=== PATIENT | male | born 1985 | race Hispanic/Latino ===

== ENCOUNTER 2017-01-19 15:46 | Emergency (ER) | payer MEDICAID ==
[2017-01-19 15:47] VITALS: BMI 21.1
[2017-01-19 16:15] VITALS: BP 131/86; PULSE 82; RESP 18; TEMP 98.6; O2SAT 99
[2017-01-19] MEDS ORDERED: Lidocaine 1% Inj (20ml) IJ ONE (17:17)
--- NOTE | 2017-01-19 17:36 | ED PDOC ---
HPI: General Adult Time Seen by Provider: 01/19/17 16:33 Chief Complaint (Nursing): Abnormal Skin Integrity History Per: Patient Additional Complaint(s): Pt. states 4 days ago he injected himself with heroin in the R forearm and the following day he developed a progressively worsening bump at the site of injection. Since then he's attempted to drain the area with little success. Denies FB sensation, fever, numbness, tingling. Past Medical History Reviewed: Historical Data, Nursing Documentation, Vital Signs Vital Signs: Last Vital Signs Temp 98.6 F 01/19/17 16:10 Pulse 82 01/19/17 16:10 Resp 18 01/19/17 16:10 BP 131/86 01/19/17 16:10 Pulse Ox 99 01/19/17 17:40 - Medical History PMH: Asthma, Depression Denies: Diabetes, Hepatitis, HIV, HTN, Chronic Kidney Disease, Seizures, Sexually Transmitted Disease - Family History Family History: States: No Known Family Hx - Home Medications Home Medications: Ambulatory Orders Medication Instructions Recorded Albuterol HFA [Ventolin HFA 90 2 puff INH BID 02/15/14 mcg/actuation (8 g)] Citalopram [celeXA] 10 mg PO DAILY #30 tab 09/24/16 traZODone [Desyrel] 50 mg PO HS #30 tab 09/24/16 Cephalexin [cephalexin] 500 mg PO Q6 #28 cap 01/19/17 Sulfamethoxazole/Trimethoprim 2 tab PO BID #28 tab 01/19/17 [Bactrim DS 800 mg-160 mg] - Allergies Allergies/Adverse Reactions: Allergies Allergy/AdvReac Type Severity Reaction Status Date / Time No Known Allergies Allergy Verified 09/22/16 09:04 Review of Systems ROS Statement: Except As Marked, All Systems Reviewed And Found Negative Musculoskeletal: Positive for: Arm Pain Physical Exam - Physical Exam Appears: Positive for: Well, Non-toxic, No Acute Distress Skin: Positive for: Normal Color, Warm. Negative for: Rash Pulses-Radial (L): 2+ Pulses-Radial (R): 2+ Extremity: Positive for: Other (R mid volar forearm with 3cm x 3cm erythematous fluctuant mass with minimal surrounding erythema but no streaking or discharge; scab noted on center of wound; no eschar) - ECG O2 Sat by Pulse Oximetry: 99 - Progress ED Course And Treament: R forearm x-ray: no FB; no osteo Disposition - Clinical Impression Clinical Impression: Abscess - Patient ED Disposition Is Patient to be Admitted: No - Disposition Disposition: Routine/Home Disposition Time: 18:35 Condition: STABLE Additional Instructions: Return to ED in 2 days for wound check. Prescriptions: Cephalexin [cephalexin] 500 mg PO Q6 #28 cap Sulfamethoxazole/Trimethoprim [Bactrim DS 800 mg-160 mg] 2 tab PO BID #28 tab Instructions: Abscess (ED) Forms: [facility] (Turkmen)
[2017-01-19] MEDS ORDERED: Lidocaine 1% Inj (20ml) ONE (17:54)
[2017-01-19] MEDS ORDERED: Povidone Iodine Topical 10% Sol ONE (17:54)
--- NOTE | 2017-01-19 17:57 | RAD ---
PROCEDURE: Radiographs of the Right Forearm HISTORY: pain, abscess COMPARISON: None available. TECHNIQUE: Frontal and lateral views obtained. FINDINGS: BONES: No fracture or destructive lesion. JOINT SPACES: Unremarkable. OTHER FINDINGS: Focal soft tissue swelling adjacent to the distal radius. The finding is marked on the study for review. IMPRESSION: Focal Soft tissue swelling without underlying, acute or significant articular or osseous abnormality.
== END 2017-01-19 18:41 | disposition home or self-care (01) ==
LOC: H.ER 15:46
DX: L02.419 Cutaneous abscess of limb, unspecified (principal); F32.9 Major depressive disorder, single episode, unspecified; J45.909 Unspecified asthma, uncomplicated; F19.10 Other psychoactive substance abuse, uncomplicated